=== PATIENT | female | born 1930 | race Caucasian/White ===

== ENCOUNTER 2017-05-13 16:28 | Emergency (ER) | payer MEDICARE, BC ==
[~2017-05-13] VITALS: Ht 144.8 cm; Wt 36.3 kg
[2017-05-13] MEDS ORDERED: BUDE6HFA INH (17:10)
[2017-05-13] MEDS ORDERED: AZIT250 PO (17:10)
[2017-05-13] MEDS ORDERED: Prozac20 MG (17:10)
[2017-05-13] MEDS ORDERED: GUAI600T33 PO (17:10)
[2017-05-13] MEDS ORDERED: ALBU90OI INH (17:10)
[2017-05-13] MEDS ORDERED: HOMATROPINE HYDR5 ML OP (17:11)
[2017-05-13] MEDS ORDERED: HYOSCYAMINE0.375 M1 PO (17:11)
[2017-05-13] MEDS ORDERED: LEVO-T25 MCG (17:12)
[2017-05-13] MEDS ORDERED: LORA.5 PO (17:13)
[2017-05-13] MEDS ORDERED: ONDA4ODT (17:13)
[2017-05-13] MEDS ORDERED: PANT40 PO (17:13)
[2017-05-13] MEDS ORDERED: PRED10 PO (17:13)
[2017-05-13] MEDS ORDERED: PROM25 PO (17:14)
[2017-05-13] MEDS ORDERED: TIOT18 INH (17:14)
[2017-05-13] MEDS ORDERED: ZOLP10 PO (17:14)
[2017-05-13] MEDS ORDERED: VERA240ER PO (17:14)
== END 2017-05-13 19:35 | disposition home or self-care (01) ==
LOC: ER 16:28
DX: R09.02 Hypoxemia (principal); R06.00 Dyspnea, unspecified; I50.9 Heart failure, unspecified; J44.9 Chronic obstructive pulmonary disease, unspecified; Z99.81 Dependence on supplemental oxygen
CPT/HCPCS: 94640; 99283